=== PATIENT | female | born 1950 | race Two or more races ===

== ENCOUNTER 2021-10-28 20:52 | Emergency (ER) | payer OTHER ==
[~2021-10-28] VITALS: Ht 144.8 cm; Wt 60.8 kg
[2021-10-28] MEDS ORDERED: GLUMETZA500 MG PO (21:03)
[2021-10-28] MEDS ORDERED: LEVSIN/SL0.125 MG SL (23:25)
[2021-10-28] MEDS ORDERED: PEPCID AC20 MG PO (23:25)
== END 2021-10-28 23:40 | disposition home or self-care (01) ==
LOC: ER 20:52
DX: K29.70 Gastritis, unspecified, without bleeding (principal); E11.9 Type 2 diabetes mellitus without complications; Z79.84 Long term (current) use of oral hypoglycemic drugs; I10 Essential (primary) hypertension